=== PATIENT | female | born 1965 | race Caucasian/White ===

== ENCOUNTER 2017-10-02 06:19 | Day surgery (SDC) | END 2017-10-02 13:11 | disposition home or self-care (01) ==

== ENCOUNTER 2018-10-04 14:03 | Emergency (ER) | payer OTHER ==
[~2018-10-04] VITALS: Ht 165.1 cm; Wt 71.5 kg
[~2018-10-04 14:03] MED LIST: ASPI-903 PO; LISI10TA2 PO; SIMVASTATIN DAILY; VITAMIN D
[2018-10-04 14:12] VITALS: Ht 165.1 cm; Wt 71.5 kg
[2018-10-04] MEDS ORDERED: CYCLOBENZAPRINE 10 MG TAB PO ONE (15:00)
[2018-10-04] MEDS ORDERED: IBUPROFEN 600 MG TAB PO ONE (15:00)
[2018-10-04] MEDS ORDERED: DEXAMETHASONE 10 MG/ML 1 ML INJ IM ONE (16:00)
[2018-10-04] MEDS ORDERED: NAPR-985 PO (16:10)
[2018-10-04] MEDS ORDERED: CYCL10TA7 PO (16:10)
[2018-10-04] MEDS ORDERED: MED4DP PO (16:10)
[2018-10-04 16:24] VITALS: BP 165/87; PULSE 79; RESP 18
--- NOTE | 2018-10-04 18:48 | ERD ---
ER Documentation Chief Complaint Chief Complaint BACK PAIN VS MUSCLE SPASM WHILE AT WORK, CHRONIC ISSUE HPI This is a 52-year-old female with history of back pain presents to the ED complaining of exacerbation of her back pain x3 days. 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 She states she bent down to picking table worker something from the floor yesterday when she bent down to pick something up which exacerbated her pain. Pain is localized to her right lower lumbar area with some numbness and tingling down her lower extremity. Pain is w orse with lying down. She denies any loss of bowel or bladder control. Denies any fevers or chills. Denies any numbness, tingling focal weakness of her lower extremities. No trauma. She has not been taking medications for this. Of note, patient is also complaining of left knee swelling and pain. She says she has [id number] osteoporosis of her left knee and is awaiting total left knee replacement. She is requesting any immobilizer for this. ROS All systems reviewed and are negative except as per history of present illness. Medications Home Meds Active Scripts Cyclobenzaprine Hcl* (Cyclobenzaprine Hcl*) 10 Mg Tablet, 10 MG PO TID, #15 TAB Prov:DIETERIGRCALDERON JOHN PA-C 10/04/18 Naproxen* (Naprosyn*) 500 Mg Tablet, 500 MG PO BID PRN for PAIN AND/OR INFLAMMATION, #30 TAB Prov:DIETERIGRIKIANDELMISPYUR N PA-C 10/04/18 Methylprednisolone* (Medrol* DOSE PACK) 4 Mg/Dose-Pack Tab.ds.pk, 4 MG PO . DIRECTED, #1 PACKET Prov:DIETERIGRIKIANDELMISPYUR N PA-C 10/04/18 Reported Medications [Simvastatin Daily] No Conflict Check 10/02/17 Aspirin* (Aspirin* Chew) 81 Mg Tab.chew, 81 MG PO DAILY, TAB.CHEW 10/02/17 [Vitamin D] No Conflict Check 01/11/15 Lisinopril* (Lisinopril*) 10 Mg Tablet, 10 MG PO DAILY, TAB 05/12/14 Allergies Allergies: Coded Allergies: No Known Allergy (Unverified , 10/04/18) PMhx/Soc History of Surgery: Yes (bypass/stent, back sx bilat knee) Anesthesia Reaction: No Hx Neurological Disorder: No Hx Respiratory Disorders: No Hx Cardiac Disorders: Yes (zof-vprdadph-lrful) Hx Psychiatric Problems: Yes (Depression) Hx Miscellaneous Medical Probl: Yes (high cholesterol) Hx Alcohol Use: Yes (occ) Hx Substance Use: No Hx Tobacco Use: Yes Smoking Status: Former smoker Physical Exam Vitals Vital Signs Date Temp Pulse Resp B/P (MAP) Pulse Ox O2 O2 Flow FiO2 Time Delivery Rate 10/04/18 98.9 79 18 165/87 98 Room Air 16:24 (113) 10/04/18 37.6 14:58 10/04/18 99.7 94 18 188/88 96 14:12 (121) Physical Exam Const: + Appears uncomfortable, limping Head: Atraumatic Eyes: Normal Conjunctiva ENT: Normal External Ears, Nose and Mouth. Neck: Full range of motion. No meningismus. Resp: Clear to auscultation bilaterally Cardio: Regular rate and rhythm, no murmurs Abd: Soft, non tender, non distended. Normal bowel sounds Skin: No petechiae or rashes Back: + Right paralumbar spinal tenderness palpation. No midline tenderness. No step-offs. No CVA tenderness. Lower Extremity -left Skin: No laceration Compartments: Soft Motor: Full active range of motion ankle and foot Sensation: Intact to light touch FDWS/MF/LF/P surfaces. Bones: +mild TTP medial joint line of the knee with small effusion, no warmth. Joints: No effusion or laxity Pulses/Perfusion: 2+ DP, Capillary refill < 2 seconds Ext: No cyanosis, or edema Neur: Awake and alert Psych: Normal Mood and Affect Results 24 hrs Current Medications Medications Dose Sig/Juan Start Time Status Last (Trade) Ordered Route PRN Stop Time Admin Dose Reason Admin 20 mg ONCE ONCE 10/04/18 DC Cyclobenzapri PO 15:00 10/04/18 ne HCl 15:01 (Flexeril) Ibuprofen 600 mg ONCE ONCE 10/04/18 DC 10/04/18 (Motrin) PO 15:00 10/04/18 14:58 15:01 10 mg ONCE ONCE 10/04/18 DC 10/04/18 Dexamethasone IM 16:00 10/04/18 15:46 (Decadron) 16:01 Procedures/MDM PROCEDURES: Knee immobilizer splint Assessment: Neurovascularly intact post splint placement with good fit. ED COURSE: The patient was given IM Decadron, ibuprofen, Flexeril The medication was well tolerated and the patient had market improvement in symptoms. The patient remained stable throughout ED course. MEDICAL DECISION MAKIN-year-old female presents with atraumatic back pain. There are no focal neurological deficits on physical exam. Advanced imaging was deferred as symptoms are likely musculoskeletal in origin. I have low suspicion for epidural abscess, cauda equina, cord compression, spinal tumor/mass or compression fracture. Patient will be treated conservatively with appropriate pain control a trial of steroids. Additionally, patient was provided a knee immobilizer for her knee swelling and osteoarthritis. She has no evidence of neurovascular injury, septic arthritis, osteomyelitis or any other emergent condition. Follow up with PCP or ortho in 1 week, otherwise return to the ED for any new or worsening symptoms. PRESCRIPTIONS: Naprosyn, Flexeril, Medrol Dosepak SPECIALIST FOLLOW UP RECOMMENDED: Ortho Patient has been advised to follow up with primary care in 1-2 days. Blood Pressure Assessment: Patient's blood pressure was elevated (>120/80) but appears stable without evidence of hypertension emergency or urgency. The patient was counseled about the risks of hypertension and urged to pursue outpatient monitoring and therapy within a week with their primary care physician. Departure Diagnosis: Primary Impression: Back spasm Condition: Stable Patient Instructions: Back Spasm, No Trauma Referrals: [facility] 7 a.m.- 11 p.m. Every Day of the Week NO APPOINTMENT OR AUTHORIZATION NEEDED Additional Instructions: Call your primary care doctor TOMORROW for an appointment during the next 2-4 days and bring all the information and medications prescribed. If the symptoms get worse and your provider is unavailable, return to the Emergency Department immediately. CALDERON DO PA-C Oct 04, 2018 18:48
== END 2018-10-04 16:27 | disposition home or self-care (01) ==
LOC: FTE 14:03
DX: M62.830 Muscle spasm of back (principal); Z79.82 Long term (current) use of aspirin; Z87.891 Personal history of nicotine dependence
CPT/HCPCS: 29505; 96372; J1100; Z7502; Z7610

== ENCOUNTER 2018-11-10 05:17 | Inpatient (IN) | payer OTHER ==
[2018-11-10] VITALS (20 sets, daily range): BP systolic 101–135; BP diastolic 46–66; PULSE 64–88; RESP 14–21; Ht 158.1 cm; Wt 73.1 kg
[~2018-11-10] VITALS: Ht 158.1 cm; Wt 73.1 kg
[~2018-11-10 05:17] MED LIST changes: +CYCL10TA7 PO; +MED4DP PO; +NAPR-985 PO; -SIMVASTATIN DAILY; +SIMVASTATIN DAILY PO
[2018-11-10] MEDS ORDERED: CHOL100062 PO (05:47)
[2018-11-10] MEDS ORDERED: AMLO2.5T78 PO (05:47)
[2018-11-10] MEDS ORDERED: LACTATED RINGER'S 1,000 ML IV ONE (06:30)
[2018-11-10] MEDS ORDERED: THROMBIN 5000 UNIT (RECOTHROM) VIAL ONE (06:50)
[2018-11-10] MEDS ORDERED: HEPARIN 1000 UNITS/ML 10 ML INJ ONE ×2 (06:50→08:54)
[2018-11-10] MEDS ORDERED: GELATIN SIZE 100 SPONGE ONE (06:50)
[2018-11-10] MEDS ORDERED: IOHEXOL 300MG/ML 30 ML BTL ONE (07:06)
[2018-11-10] MEDS ORDERED: SIMV40TA2 PO (07:09)
[2018-11-10] MEDS ORDERED: LISI-471 PO (07:09)
[2018-11-10] MEDS ORDERED: AMLO5TAB4 PO (07:10)
[2018-11-10] MEDS ORDERED: HEPARIN 1000 UNITS/ML 10 ML INJ IRR ONE (07:15)
[2018-11-10] MEDS ORDERED: hydrALAzine 20 MG INJ IV PRN (07:30)
[2018-11-10] MEDS ORDERED: HYDROmorphONE 1 MG/5 ML IV SYRINGE IV PRN ×3 (07:30)
[2018-11-10] MEDS ORDERED: DESFLURANE 15 MIN ONE (07:30)
[2018-11-10] MEDS ORDERED: LABETALOL HCL 20MG INJ IV PRN (07:30)
--- NOTE | 2018-11-10 07:30 | HPN ---
Date/Time of Note Date/Time of Note DATE: 11/10/18 TIME: 07:30 Interval H&P Admission Note Pt. seen H&P reviewed: No system changes JENNIFER MIMS MD Nov 10, 2018 07:30
--- NOTE | 2018-11-10 07:30 | PREAC ---
Date/Time of Note Date/Time of Note DATE: 11/10/18 TIME: 07:28 Anesthesia Eval and Record Evaluation Time Pre-Procedure Interview DATE: 11/10/18 TIME: 07:28 Age 52 Sex female NPO: 8 hrs Preoperative diagnosis PAD Planned procedure thrombectomy femoral bypass Past Medical History Past Medical History: Includes Cardio: HTN, Dyslipidemia, CAD Pulm: Smoking Hx, COPD Neuro: Peripheral neuropathy Musculoskeletal: Osteoarthritis Renal: CKD Hepatic: Alcohol abuse GI: Obesity Surgery & Anesthesia Issues No known issue Meds Anticoagulation: No Beta Van within 24 hr: No Reason Beta Van not given: Pt. not on B-Van Reported Medications Amlodipine Besylate* (Norvasc*) 5 Mg Tablet, 5 MG PO DAILY, TAB 11/10/18 Simvastatin* (Zocor*) 40 Mg Tablet, 40 MG PO QHS, #30 TAB 11/10/18 Lisinopril* (Lisinopril*) 20 Mg Tablet, 20 MG PO DAILY, #30 TAB 11/10/18 Cholecalciferol* (Vitamin D3*) 1,000 Unit Tablet, 1000 UNIT PO DAILY, TAB 11/10/18 Aspirin* (Aspirin* Chew) 81 Mg Tab.chew, 81 MG PO DAILY, TAB.CHEW 10/02/17 Discontinued Reported Medications Amlodipine Besylate* (Amlodipine Besylate*) 2.5 Mg Tablet, 5 MG PO DAILY, #30 TAB 11/10/18 [Simvastatin Daily] No Conflict Check, 40 MG PO HS 10/02/17 [Vitamin D] No Conflict Check 01/11/15 Lisinopril* (Lisinopril*) 10 Mg Tablet, 20 MG PO DAILY, TAB 05/12/14 Discontinued Scripts Cyclobenzaprine Hcl* (Cyclobenzaprine Hcl*) 10 Mg Tablet, 10 MG PO TID, #15 TAB Prov:DISHIGRIKIAN,ZEPYUR N PA-C 10/04/18 Naproxen* (Naprosyn*) 500 Mg Tablet, 500 MG PO BID PRN for PAIN AND/OR INFLAMMATION, #30 TAB Prov:DISHIGRIKIAN,ZEPYUR N PA-C 10/04/18 Methylprednisolone* (Medrol* DOSE PACK) 4 Mg/Dose-Pack Tab.ds.pk, 4 MG PO . DIRECTED, #1 PACKET Prov:DISHIGRIKIAN,ZEPYUR N PA-C 10/04/18 Current Medications Lactated Ringer's 1,000 ml @ 25 mls/hr Q24H ONCE IV Last administered on 11/10/18at 06:37; Admin Dose 25 MLS/HR; Start 11/10/18 at 06:30; Stop 11/11/18 at 06:29 Meds reviewed: Yes Allergies Coded Allergies: No Known Allergy (Unverified , 11/10/18) Allergies Reviewed: Yes Labs/Studies Labs Reviewed: Reviewed by anesthesiologist Result Diagram: 11/10/1860411/10/18604 Laboratory Tests 11/10/18 06:05 test: N/A Pre-procedure Exam Last vitals Vital Signs Date Temp Pulse Resp B/P (MAP) Pulse Ox O2 O2 Flow FiO2 Time Delivery Rate 11/10/18 97.4 64 18 135/64 96 Room Air 06:41 (87) Airway: Adequate mouth opening, Adequate thyromental dist Mallampati: Mallampati IV Teeth: Normal Lung: Normal Heart: Normal ASA Physical Status ASA physical status: 4 Emergency: None Pre-operative Attestations Prior to commencing anesthesia and surgery, the patient was re-evaluated, there was verification of: *The patient's identity *The results of appropriate recent lab work and preoperative vital signs *The above evaluation not changing prior to induction *Anesthetic plan, risk benefits, alternative and complications discussed with patient/family; questions answered; patient/family understands, accepts and wishes to proceed. DAVID ACOSTA DO Nov 10, 2018 07:30
[2018-11-10] MEDS ORDERED: LIDOCAINE 1% (MDV) 20 ML INJ ONE (07:36)
[2018-11-10] MEDS ORDERED: ROCURONIUM 50 MG INJ ONE ×2 (07:36→09:56)
[2018-11-10] MEDS ORDERED: FENTAnyl 50 MCG/ML VIAL ONE (07:36)
[2018-11-10] MEDS ORDERED: morphine SULFATE/PF (10 MG/10 ML) INJ ONE (07:36)
[2018-11-10] MEDS ORDERED: ETOMIDATE 20 MG INJ ONE (07:36)
[2018-11-10] MEDS ORDERED: MIDAZOLAM 1 MG/ML 2 ML INJ ONE (07:45)
[2018-11-10] MEDS ORDERED: CEFAZOLIN 1 GM INJ ONE (08:13)
[2018-11-10] MEDS ORDERED: DEXAMETHASONE 4 MG/ML 5 ML INJ ONE (08:18)
[2018-11-10] MEDS ORDERED: FAMOTIDINE 20 MG INJ ONE (08:18)
[2018-11-10] MEDS ORDERED: ONDANSETRON 4 MG INJ ONE (08:18)
[2018-11-10] MEDS ORDERED: SOD CHLORIDE 0.9% 250 ML IV* ONE (09:34)
[2018-11-10] MEDS ORDERED: SUGAMMADEX SODIUM 200 MG/2 ML VIAL IV ONE (09:56)
[2018-11-10] MEDS ORDERED: THROMBIN 5000 UNIT (RECOTHROM) VIAL TOP ONE (09:58)
[2018-11-10] MEDS ORDERED: GELATIN SIZE 100 SPONGE TOP ONE (09:58)
[2018-11-10] MEDS ORDERED: ROPIVACAINE 0.2% 20 ML VIAL ONE (10:01)
--- NOTE | 2018-11-10 10:23 | SIPON ---
Date/Time of Note Date/Time of Note DATE: 11/10/18 TIME: 10:21 Operative Report Preoperative Diagnosis Aortic occlusion, rest pain, thrombosed R ax-bifem BPG Postoperative Diagnosis same Operation/Procedure Performed Thrombectomy of Right ax-bifem bypass graft Surgeon see signature line social worker assistant Dr. Yosef Malhotra Anesthesia: general, spinal Estimated blood loss: other (350 mL) Transfusion Required none Specimen Chronic appearing thrombus from R ax-bifem bypass graft Grafts/Implants none Complications none JENNIFER MIMS MD Nov 10, 2018 10:22
[2018-11-10] MEDS ORDERED: morphine 2 MG INJ IV PRN ×2 (10:30)
[2018-11-10] MEDS ORDERED: ONDANSETRON 4 MG INJ IV PRN (10:30)
--- NOTE | 2018-11-10 10:44 | PAC ---
Date/Time of Note Date/Time of Note DATE: 11/10/18 TIME: 10:43 Post-Anesthesia Notes Post-Anesthesia Note Last documented vital signs Vital Signs Date Temp Pulse Resp B/P (MAP) Pulse Ox O2 O2 Flow FiO2 Time Delivery Rate 11/10/18 98 70 18 114/54 97 Room Air 1046 Activity: WNL Respiratory function: WNL Cardiovascular function: WNL Mental status: Baseline Pain reasonably controlled: Yes Hydration appropriate: Yes Nausea/Vomiting absent: Yes DAVID ACOSTA DO Nov 10, 2018 10:44
[2018-11-10] MEDS: HEPARIN 25000 UNITS/250 ML 250 ML IV SCH ×4 (11:50→18:05)
--- NOTE | 2018-11-10 12:28 | OPR ---
DATE OF OPERATION: 11/10/2018 PREOPERATIVE DIAGNOSIS: Aorta occlusion, thrombosed right axillary bifemoral bypass graft, rest pain. POSTOPERATIVE DIAGNOSIS: Aorta occlusion, thrombosed right axillary bifemoral bypass graft, rest pain. PROCEDURE: Thrombectomy of right axillary to bifemoral bypass graft. SURGEON: JENNIFER MIMS MD PROVIDER ENGAGEMENT EXECUTIVE: LUIS HENRIQUEZ MD ANESTHESIA: General and spinal. ESTIMATED BLOOD LOSS: 350 mL. COMPLICATIONS: None. SPECIMENS: The graft thrombus, chronic appearing. PREOPERATIVE INDICATIONS: This is a 52-year-old female with chronic back neuropathic pain status post spinal fusions in the past who was then diagnosed with aortic occlusion that was chronic. She is status post a right axillary to bifemoral bypass graft about 3 years ago for which she had done well overall despite the fact that she never had full resolution of her symptoms. She recently had an ultrasound that demonstrated that she had occluded graft of unclear cause. Her symptoms overall have not been dramatically different. However, she has persistent with may be neuropathic symptoms. She now needs a left total knee replacement in order to help alleviate her severe left knee osteoarthritic disease. She has significant symptoms on that side. Given this and the patient's adamant refusal for any open intra-abdominal aortic procedures, plan was to attempt thrombectomy of her bypass graft. The risks were clearly and extensively discussed with the patient including the possibility of not being able to open the graft due to the unclear timing of when it occluded. In addition, the risk for infection and possible further issues with distal flow and possible embolization were discussed with the patient at length. She understood and agreed to proceed. PROCEDURE: The patient was properly identified, brought to the operating room and placed in supine position. She was induced with general anesthesia after receiving a spinal block. She received preoperative antibiotics. The patient's right chest and flank/abdomen along with bilateral groins were prepped and draped in the usual sterile fashion. Ioban was placed. Ultrasound preoperatively localized the bifurcated area of the graft. This was at the upper right groin. A longitudinal incision overlying this area was then created using a 15-blade scalpel. Electrocautery was used to dissect through the subcutaneous tissues and the graft was then identified and circumferentially dissected free from well-scarred surrounding tissues, and all 3 limbs were controlled. The patient was heparinized with 7000 units of intravenous heparin. An 11-blade scalpel was used to create an opening into the graft. Initially, a #4 Teagan balloon was used to thrombectomize the inflow. There was significant resistance near the arterial anastomosis at the inflow. Copious amounts of chronic-appearing thrombus material along with some fibrinous material were removed after multiple passes. After multiple passes, the inflow was still not fully restored. Therefore, plan was to attempt to assess the outflow. If the outflow were occluded as well then, the procedure would be aborted. However, using combination of the #4 and #5 Teagan balloons, the bilateral femoral outflows were restored with retrieval of copious amount of chronic appearing thrombus/fibrinous material. There was actually very good backbleeding from both limbs at this point. They were controlled with a Hydragrip Teagan clamps. Next, attention was returned towards the inflow. The #5 Teagan was advanced and this was able to traverse across the anastomosis and into the artery. This was noticed on palpation. With thrombectomy, there was retrieval of a chronic- appearing platelet/fibrin plug. This allowed for excellent cheondoism of flow from the axillary artery. This was controlled with a vascular clamp as well. After carefully examining the lumen of the open graft to make sure there was no residual debris, the graftotomy was then closed using a 5-0 Prolene in a running fashion. Prior to completion of the suture line, the inflow was forward flushed and the outflow was backbled. Heparinized saline was infused. The suture line was then completed. With release of the clamps, there was excellent pulsation throughout the graft. Doppler evaluation demonstrated good multiphasic signals at the femoral artery, distal to the anastomoses. Given the fact that there was such great inflow and backbleeding from the outflow limbs, a decision was made not to pursue angiography. Given the patient's chronic kidney disease with elevated creatinine along with some volume loss, the decision was made to not do the angiogram. Evaluation distally demonstrated patient had pink and warm feet along with doppler DP signals for which she had bypass graft patent previously. Hemostasis was obtained with thrombin-soaked Gelfoam. The incision was closed in multiple layers with 3-0 Vicryl sutures in a running fashion. The skin was closed with 4-0 Monocryl in a subcuticular technique. Steri-Strips and Mepilex silver dressing was then placed. The patient was awoken from anesthesia without any difficulty and was transferred to recovery in good condition. The patient will be kept on anticoagulation to aid in maintaining patency of the graft. She tolerated the procedure well without any complications and was transferred in good condition. Dictated By: JENNIFER BARRETO/ANISA Conf#: [id number] DID#: [id number] CC: LUIS HENRIQUEZ MD;*EndCC* MTDD
--- NOTE | 2018-11-10 14:52 | HP ---
Date/Time of Note Date/Time of Note DATE: 11/10/18 TIME: 14:42 Assessment/Plan VTE Prophylaxis Risk score (from Nsg)>0 risk: 3 SCD applied (from Ns): No SCD contraindicated: other Pharmacological prophylaxis: NA/contraindicated, heparin Pharm contraindication: surgical contra Lines/Catheters IV Catheter Type (from [facility]): Peripheral IV Urinary Cath still in place: Yes Reason Cath still needed: other (indicate) Assessment/Plan Hospital Course SUBJECTIVE: Lying in bed, no acute distress. OBJECTIVE: Vital signs-see below PHYSICAL EXAM: Constitutional: Adequately built,not in acute distress. HEENT: Head atraumatic and normocephalic. Eyes: Extraocular muscles intact. Anicteric sclerae. Pupils equal bilaterally, reactive to light. NECK: Supple without lymph node. CHEST: Clear and good breath sounds equally. No wheezing. No rhonchi. HEART: S1, S2. Regular rate and rhythm. ABDOMEN: Soft/non tender with no rebound tenderness. Bowel sounds were present. EXTREMITIES: Rt upper groin incision intact. No cyanosis, clubbing or edema.Palpable pulses puneet DP/PT. NEUROLOGIC: Alert and oriented x3. No focal deficit. No sensory deficit. PSYCHOSOCIAL: No signs of depression. INTEGUMENTARY: No open wounds. ASSESSMENT AND PLAN:52 yo F w/lumar fusion/laminectomy sx, puneet knee OA, htn, dlp, CKD brought in for elective vascular intention for thrombosed rt axillary bifemoral graft w/aorta occlusion. Aorta occlusion, thrombosed right axillary bifemoral bypass graft. -s/p Thrombectomy of right axillary to bifemoral bypass graft by 11/10 -on Hep gtt (managed per vascular) -post op course per vascular -Continue to optimize neurovascular status with antihypertensives to keep blood pressure ~140/90, diet, nutrition, exercise, blood glucose control, and antiplatelets/anticoagulation. HTN -resume home meds Dyslipidemia -resume statin CKD -Baseline Cr 1.5-1.7 -Stable renal fxn at baseline -monitor. Knee OA -PRN Pain meds -pt has outpt f/u for elective knee surgery when medically stable DJD of lumbar spine, s/p lumbar fusion/laminectomy sx -no acute issues PPX:On Hep gtt Rest of the management depend on clinical course. Approximately 60-minute was spent on this history and physical. Patient was seen in collaboration with Result Diagram: 11/10/18 1104 11/10/18 0605 Results 24hrs Laboratory Tests Test 11/10/18 06:05 11/10/18 11:04 White Blood Count 8.7 # 9.5 Red Blood Count 4.66 # 3.98 L Hemoglobin 13.0 # 11.2 L Hematocrit 41.1 # 36.1 L Mean Corpuscular Volume 88.2 90.7 Mean Corpuscular Hemoglobin 27.9 L 28.1 L Mean Corpuscular Hemoglobin Concent 31.6 L 31.0 L Red Cell Distribution Width 13.6 13.8 Platelet Count 254 158 # Mean Platelet Volume 10.3 10.8 H Immature Granulocytes % 0.200 0.500 H Neutrophils % 58.3 79.1 H Lymphocytes % 23.8 14.4 L Monocytes % 7.5 2.4 Eosinophils % 9.6 H 3.3 Basophils % 0.6 0.3 Nucleated Red Blood Cells % 0.0 0.0 Immature Granulocytes # 0.020 0.050 H Neutrophils # 5.1 7.5 Lymphocytes # 2.1 1.4 Monocytes # 0.7 0.2 L Eosinophils # 0.8 H 0.3 Basophils # 0.1 0.0 Nucleated Red Blood Cells # 0.0 0.0 Prothrombin Time 12.1 14.4 Prothrombin Time Ratio 0.9 1.1 INR International Normalized Ratio 0.89 1.11 Activated Partial Thromboplast Time 26.1 150.6 *H Sodium Level 141 Potassium Level 4.4 Chloride Level 106 Carbon Dioxide Level 27 Anion Gap 8 Blood Urea Nitrogen 22 H Creatinine 1.54 H Est Glomerular Filtrat Rate mL/min 35 L Glucose Level 110 Calcium Level 9.6 Total Bilirubin 0.5 Direct Bilirubin 0.00 Indirect Bilirubin 0.5 Aspartate Amino Transf (AST/SGOT) 22 Alanine Aminotransferase (ALT/SGPT) 21 Alkaline Phosphatase 73 Total Protein 7.1 Albumin 4.2 Globulin 2.90 Albumin/Globulin Ratio 1.44 HPI/ROS Admit Date/Time Admit Date/Time Nov 10, 2018 at 05:17 Hx of Present Illness This is a 52-year-old female with a history of lumbar spinal fusion/laminectomy, bilateral knee osteoarthritis, CKD with baseline creatinine 1.5-1.7,htn,dlp, was brought in by vascular surgeon for elective thrombectomy of right axillary to bifemoral bypass graft secondary to aorta occlusion, thrombosed right axillary bifemoral bypass graft. At my encounter with the patient, patient denies any chest pain, palpitation, shortness of breath, nausea, vomiting, abdominal pain, numbness, tingling, loss of consciousness, dizziness, or other constitutional symptoms. Patient is starting to have sensation on right foot. She is able to move her extremities. Labs stable except for BUN 22, creatinine 1.5. Vital signs stable. ROS A 12 point review of system was assessed and is negative other than what is mentioned in the HPI. PMH/Family/Social Past Medical History See HPI Medications Current Medications Lactated Ringer's 1,000 ml @ 25 mls/hr Q24H ONCE IV Last administered on 11/10/18at 06:37; Admin Dose 25 MLS/HR; Start 11/10/18 at 06:30; Stop 11/11/18 at 06:29 Hydromorphone HCl (Dilaudid) 0.2 mg PACU PRN IV MILD PAIN 1-3; Start 11/10/18 at 07:30; Stop 11/10/18 at 15:00 Hydromorphone HCl (Dilaudid) 0.4 mg PACU PRN IV MOD PAIN 4-6; Start 11/10/18 at 07:30; Stop 11/10/18 at 15:00 Hydromorphone HCl (Dilaudid) 0.6 mg PACU PRN IV SEVERE PAIN 7-10; Start 11/10/18 at 07:30; Stop 11/10/18 at 15:00 Labetalol HCl (Labetalol) 5 mg PACU ORDER PRN IV HIGH BLOOD PRESSURE; Start 11/10/18 at 07:30; Stop 11/10/18 at 15:00 Hydralazine HCl (Apresoline) 5 mg PACU ORDER PRN IV HIGH BLOOD PRESSURE; Start 11/10/18 at 07:30; Stop 11/10/18 at 15:00 Cefazolin Sodium/ Dextrose 50 ml @ 100 mls/hr Q8H IVPB ; Start 11/10/18 at 16:00; Stop 11/11/18 at 15:59 Morphine Sulfate (morphine) 2 mg Q2H PRN IV PAIN LEVEL 6-10; Start 11/10/18 at 10:30 Ondansetron HCl (Zofran Inj) 4 mg Q6H PRN IV NAUSEA AND/OR VOMITING; Start 11/10/18 at 10:30 Sodium Chloride 1,000 ml @ 100 mls/hr Q10H IV ; Start 11/10/18 at 10:21 Heparin Sodium (Porcine) 250 ml @ 8.772 mls/ hr PER VASCULAR SURG IV Last administered on 11/10/18at 14:01; Admin Dose 6 MLS/HR; Start 11/10/18 at 10:30 Morphine Sulfate (morphine) 1 mg Q4H PRN IV MODERATE PAIN LEVEL 4-6; Start 11/10/18 at 10:30 Coded Allergies: No Known Allergy (Unverified , 11/10/18) Past Surgical History See HPI Social History Former smoker. Denied any current use of alcohol, illicit drug use. Smoking Status: Former smoker Exam/Review of Systems Vital Signs Vitals Vital Signs Date Temp Pulse Resp B/P (MAP) Pulse Ox O2 O2 Flow FiO2 Time Delivery Rate 11/10/18 97.8 73 18 111/63 98 13:09 (79) 11/10/18 Nasal 2.0 13:02 Cannula CLAUDIA LAI NP Nov 10, 2018 14:52
[2018-11-10] MEDS: SOD CHLORIDE 0.9% 1,000 ML IV SCH ×2 (17:27→20:21)
[2018-11-10] MEDS: CEFAZOLIN 2 GM/50 ML (PMX) 50 ML IVPB SCH (17:27)
[2018-11-10] MEDS: CHOLECALCIFEROL 1,000 UNIT TAB PO SCH (17:29)
[2018-11-10] MEDS: AMLODIPINE 5 MG TAB PO SCH (17:29)
[2018-11-10] MEDS: LISINOPRIL 20 MG TAB PO SCH (17:29)
[2018-11-10] MEDS ORDERED: ATORVASTATIN 20 MG TAB PO SCH (21:00)
[2018-11-11] VITALS: BP 101/51; PULSE 55; PULSE 79; RESP 18
[2018-11-11] MEDS: CEFAZOLIN 2 GM/50 ML (PMX) 50 ML IVPB SCH ×2 (01:08→10:43)
[2018-11-11] MEDS ORDERED: DIPHENHYDRAMINE 25 MG CAP PO PRN (03:00)
[2018-11-11] MEDS: SOD CHLORIDE 0.9% 1,000 ML IV SCH (03:43)
[2018-11-11 04:00] VITALS: BP 114/56; PULSE 59; PULSE 61; RESP 18
--- NOTE | 2018-11-11 07:04 | PN ---
Date/Time of Note Date/Time of Note DATE: 11/11/18 TIME: 06:59 Assessment/Plan Lines/Catheters IV Catheter Type (from Nrsg): Peripheral IV Berg in Place (from Nrsg): Yes Assessment/Plan Assessment/Plan s/p thrombectomy of R ax-bifem bypass POD#1 Plan: -Appreciate medical management -Ok to d/c Berg -May get OOB to chair and ambulate w/ assist as needed -Will transition hep gtt to Eliquis -Ok for discharge on Eliquis from surgical standpoint and when Ok w/ Dr. Dennis's team Pt should follow up w/ me in 1 week in outpatient office Subjective 24 Hr Interval Summary Pt c/o itching o/n, received benadryl, improved; no issues w/ BLE; b/l feet warm, no pain Exam/Review of Systems Vital Signs Vitals Vital Signs Date Temp Pulse Resp B/P (MAP) Pulse Ox O2 O2 Flow FiO2 Time Delivery Rate 11/11/18 97.0 59 18 114/56 98 04:00 (75) 11/10/18 Nasal 2.0 13:02 Cannula Intake and Output 11/10/18 11/10/18 11/11/18 1515:00 23:00 07:00 IntakeIntake Total 3000 ml 200 ml 1698 ml OutputOutput Total 750 ml 500 ml 1050 ml BalanceBalance 2250 ml -300 ml 648 ml Exam Free Text/Dictation Gen: AAOx3, NAD Abd: RLQ incision site c/d/i, soft, no hematoma Extr: BLE feet hot, pink, no edema, no pain Results Result Diagram: 11/11/18 0533 11/11/18 0533 JENNIFER MIMS MD Nov 11, 2018 07:04
[2018-11-11 07:39] VITALS: BP 106/54; PULSE 68; RESP 18
[2018-11-11] MEDS: CHOLECALCIFEROL 1,000 UNIT TAB PO SCH (08:48)
[2018-11-11] MEDS: LISINOPRIL 20 MG TAB PO SCH (08:48)
[2018-11-11] MEDS: AMLODIPINE 5 MG TAB PO SCH (08:48)
[2018-11-11] MEDS ORDERED: APIXABAN 5 MG TABLET PO SCH (09:00)
--- NOTE | 2018-11-11 10:05 | PDOCDIS ---
Discharge Instructions CONDITION [id number] Patient Condition: [id number] Stable HOME CARE INSTRUCTIONS: [id number] Diet Instructions: [id number] Low Fat /Cholesterol FOLLOW UP/APPOINTMENTS Follow-up Plan Follow-up with in 1 week Follow-up with primary care physician in 1 week CLAUDIA LAI NP Nov 11, 2018 10:05
[2018-11-11] MEDS ORDERED: APIX5TAB PO (10:06)
--- NOTE | 2018-11-11 10:11 | DS ---
Date/Time of Note Date/Time of Note DATE: 11/11/18 TIME: 10:10 Discharge Summary Admission/Discharge Info Admit Date/Time Nov 10, 2018 at 05:17 Discharge Date/Time Discharge Diagnosis Aorta occlusion, thrombosed right axillary bifemoral bypass graft. -s/p Thrombectomy of right axillary to bifemoral bypass graft by 11/10 HTN Dyslipidemia CKD -Baseline Cr 1.5-1.7 Puneet Knee OA DJD of lumbar spine, s/p lumbar fusion/laminectomy sx Patient Condition: Stable Consults Procedures Thrombectomy of right axillary to bifemoral bypass graft by 11/10 Hx of Present Illness This is a 52-year-old female with a history of lumbar spinal fusion/laminectomy, bilateral knee osteoarthritis, CKD with baseline creatinine 1.5-1.7,htn,dlp, was brought in by vascular surgeon for elective thrombectomy of right axillary to bifemoral bypass graft secondary to aorta occlusion, thrombosed right axillary bifemoral bypass graft. At my encounter with the patient, patient denies any chest pain, palpitation, shortness of breath, nausea, vomiting, abdominal pain, numbness, tingling, loss of consciousness, dizziness, or other constitutional symptoms. Patient is starting to have sensation on right foot. She is able to move her extremities. Labs stable except for BUN 22, creatinine 1.5. Vital signs stable. Hospital Course 52 yo F w/lumar fusion/laminectomy sx, puneet knee OA, htn, dlp, CKD brought in for elective vascular intention for thrombosed rt axillary bifemoral graft w/aorta occlusion. Patient underwent Thrombectomy of right axillary to bifemoral bypass graft by 11/10. Patient did well postoperatively. She was transitioned to Eliquis for anticoagulation. We continued to optimize her neurovascular status with antihypertensives to keep blood pressure ~140/90, diet, nutrition, exercise , blood glucose control, and antiplatelets/anticoagulation. She was continued on home medication for underlying dyslipidemia and hypertension. Patient was also noted with a creatinine 1.5 for which she was already diagnosed with CKD with a baseline creatinine 1.5-1.7. Her creatinine trended down postoperatively to 1.2. Patient was continued on pain medication for underlying knee osteoarthritis. Patient already has outpatient follow-up for elective knee surgery when she is medically stable from vascular standpoint. At this time, patient is cleared for discharge with outpatient follow-up per vascular recommendation. We will discharge her on Eliquis. Case management to make sure Eliquis is authorized prior to discharge. Patient to follow-up with vascular surgeon in a week. She was given postoperative instructions. Approximately 60-minute was spent on coordinating the discharge on this patient. Patient was seen in collaboration with Dr.Rahi Deandre Shaffer Active Scripts Apixaban* (Eliquis*) 5 Mg Tablet, 5 MG PO BID, #60 TAB Prov:CLAUDIA LAI V. SALES VENDOR 11/11/18 Reported Medications Amlodipine Besylate* (Norvasc*) 5 Mg Tablet, 5 MG PO DAILY, TAB 11/10/18 Simvastatin* (Zocor*) 40 Mg Tablet, 40 MG PO QHS, #30 TAB 11/10/18 Lisinopril* (Lisinopril*) 20 Mg Tablet, 20 MG PO DAILY, #30 TAB 11/10/18 Cholecalciferol* (Vitamin D3*) 1,000 Unit Tablet, 1000 UNIT PO DAILY, TAB 11/10/18 Aspirin* (Aspirin* Chew) 81 Mg Tab.chew, 81 MG PO DAILY, TAB.CHEW 10/02/17 Discontinued Reported Medications Amlodipine Besylate* (Amlodipine Besylate*) 2.5 Mg Tablet, 5 MG PO DAILY, #30 TAB 11/10/18 [Simvastatin Daily] No Conflict Check, 40 MG PO HS 10/02/17 [Vitamin D] No Conflict Check 01/11/15 Lisinopril* (Lisinopril*) 10 Mg Tablet, 20 MG PO DAILY, TAB 05/12/14 Discontinued Scripts Cyclobenzaprine Hcl* (Cyclobenzaprine Hcl*) 10 Mg Tablet, 10 MG PO TID, #15 TAB Prov:DISHIGRIKIANCALDERON N PA-C 10/04/18 Naproxen* (Naprosyn*) 500 Mg Tablet, 500 MG PO BID PRN for PAIN AND/OR INFLAMMATION, #30 TAB Prov:DISHIGRIKIANZEPYUR N PA-C 10/04/18 Methylprednisolone* (Medrol* DOSE PACK) 4 Mg/Dose-Pack Tab.ds.pk, 4 MG PO . DIRECTED, #1 PACKET Prov:DISHIGRIKICALDERON VELAZQUEZ N PA-C 6/9/19 Follow-up Plan Follow-up with in 1 week Follow-up with primary care physician in 1 week Primary Care Provider Not On Staff Doctor Pending Labs Laboratory Tests Test 11/10/18 11:04 11/10/18 17:07 11/11/18 00:24 11/11/18 05:33 White Blood 9.5 8.6 Count 10^3/ul (4.8-10 10^3/ul (4.8-1 .8) 0.8) Red Blood 3.98 3.23 Count 10^6/ul (4.20-5 10^6/ul (4.20- .40) 5.40) Hemoglobin 11.2 9.1 g/dl (12.0-16.0 g/dl (12.0-16. ) 0) Hematocrit 36.1 29.3 % (37.0-47.0) % (37.0-47.0) Mean 90.7 90.7 Corpuscular fl (82.0-101.0) fl (82.0-101.0 Volume ) Mean 28.1 28.2 Corpuscular pg (29.0-33.0) pg (29.0-33.0) Hemoglobin Mean 31.0 31.1 Corpuscular g/dl (32.0-37.0 g/dl (32.0-37. Hemoglobin Conc ) 0) ent Red Cell 13.8 13.8 Distribution % (11.5-14.5) % (11.5-14.5) Width Platelet Count 158 131 10^3/UL (140-41 10^3/UL (140-4 5) 15) Mean Platelet 10.8 10.3 Volume fl (7.4-10.4) fl (7.4-10.4) Immature 0.500 0.300 Granulocytes % % (0.001-0.429) % (0.001-0.429 ) Neutrophils % 79.1 80.2 % (39.0-77.0) % (39.0-77.0) Lymphocytes % 14.4 13.6 % (15.0-51.0) % (15.0-51.0) Monocytes % 2.4 5.6 % (0.0-11.0) % (0.0-11.0) Eosinophils % 3.3 % (0.0-7.0) 0.2 % (0.0-7.0) Basophils % 0.3 % (0.0-2.0) 0.1 % (0.0-2.0) Nucleated Red 0.0 0.0 Blood Cells % /100WBC (0.0-0. /100WBC (0.0-0 0) .0) Immature 0.050 0.030 Granulocytes # 10^3/ul (0.0-0. 10^3/ul (0.0-0 031) .031) Neutrophils # 7.5 6.9 10^3/ul (1.6-7. 10^3/ul (1.6-7 5) .5) Lymphocytes # 1.4 1.2 10^3/ul (0.8-2. 10^3/ul (0.8-2 9) .9) Monocytes # 0.2 0.5 10^3/ul (0.3-0. 10^3/ul (0.3-0 9) .9) Eosinophils # 0.3 0.0 10^3/ul (0.0-0. 10^3/ul (0.0-0 5) .5) Basophils # 0.0 0.0 10^3/ul (0.0-0. 10^3/ul (0.0-0 1) .1) Nucleated Red 0.0 0.0 Blood Cells # 10^3/ul (0.0-0. 10^3/ul (0.0-0 0) .0) Prothrombin 14.4 13.3 Time Sec (11.9-14.9) Sec (11.9-14.9 ) Prothrombin 1.1 1.0 Time Ratio INR 1.11 1.00 International Normalized Rati o Activated 150.6 41.2 59.8 65.2 Partial Thrombo Sec (23.0-35.0) Sec (23.0-35.0 Sec (23.0-35.0 Sec (23.0-35.0 plast Time ) ) ) Sodium Level 139 mmol/L (135-14 4) Potassium 4.0 Level mmol/L (3.5-5. 1) Chloride Level 114 mmol/L (97-110 ) Carbon Dioxide 21 Level mmol/L (21-31) Anion Gap 4 (5-13) Blood Urea 18 Nitrogen mg/dl (7-20) Creatinine 1.26 mg/dl (0.44-1. 00) Est Glomerular 44 Filtrat mL/min (>60) Rate mL/min Glucose Level 93 mg/dl (70-220) Hemoglobin A1c 5.6 % (0-5.9) Calcium Level 7.3 mg/dl (8.4-10. 2) Total 0.2 Bilirubin mg/dl (0.2-1.3 ) Direct 0.00 Bilirubin mg/dl (0.00-0. 20) Indirect 0.2 Bilirubin mg/dl (0-1.1) Aspartate Amino 21 Transf (AST/SGO IU/L (15-46) T) Alanine 29 Aminotransferas IU/L (13-69) e (ALT/SGPT) Alkaline 53 Phosphatase IU/L (42-121) Total Protein 5.0 g/dl (6.1-8.1) Albumin 2.7 g/dl (3.3-4.9) Globulin 2.30 g/dl (1.3-3.2) Albumin/Globuli 1.17 n Ratio Triglycerides 108 Level mg/dl (0-149) Cholesterol 153 Level mg/dl (100-200 ) LDL 95 mg/dl Cholesterol, Calculated HDL 36 Cholesterol mg/dl (37-92) Cholesterol/HDL 4.2 RATIO Ratio CLAUDIA LAI V. SALES VENDOR Nov 11, 2018 10:11
[2018-11-11 11:36] VITALS: BP 100/51; PULSE 62; RESP 17
--- NOTE | 2018-11-14 16:14 | RADRPT ---
Vent Rate: 71 bpm RR Interval: 848 msec OR Interval: 162 msec QRS Duration: 92 msec QT Interval: 428 msec QTC Interval: 465 msec P-R-T Manley: 54 - 46 - -5 degrees Sinus rhythm...normal P axis, V-rate 50- 99 Consider left ventricular hypertrophy...(S V1+R V5/V6) >3.25mV Electronically Signed By: Solitario Adame
== END 2018-11-11 15:52 | disposition home or self-care (01) | DRG 253 ==
LOC: REC 05:17 → 6WM 12:19
PROVIDERS: ADMIT Hospitalist; ATTEND Hospitalist
PROC: 04CL0ZZ Extirpation of Matter from Left Femoral Artery, Open Approach (ICD-10-PCS; 2018-11-10)
PROC: 04CK0ZZ Extirpation of Matter from Right Femoral Artery, Open Approach (ICD-10-PCS; 2018-11-10)
PROC: [UNRECOGNIZED PROCEDURE] (principal; 2018-11-10 07:30)
DX: T82.868A Thrombosis due to vascular prosthetic devices, implants and grafts, initial encounter (principal); I74.09 Other arterial embolism and thrombosis of abdominal aorta; Z98.1 Arthrodesis status; E78.5 Hyperlipidemia, unspecified; I12.9 Hypertensive chronic kidney disease with stage 1 through stage 4 chronic kidney disease, or unspecified chronic kidney disease; M17.0 Bilateral primary osteoarthritis of knee; N18.9 Chronic kidney disease, unspecified; G62.9 Polyneuropathy, unspecified; J44.9 Chronic obstructive pulmonary disease, unspecified; Z87.891 Personal history of nicotine dependence; Y83.2 Surgical operation with anastomosis, bypass or graft as the cause of abnormal reaction of the patient, or of later complication, without mention of misadventure at the time of the procedure
CPT/HCPCS: 71045; 80053; 80061; 83036; 85025; 85610; 85730; 86850; 86900; 86901; 86920; 87086; 88304; 93005; J0690; J1100; J1644; J2250; J2270; J2274; J2405; J2795; J3010; J7030; Q9967